=== PATIENT | female | born 1990 | race Caucasian/White ===

== ENCOUNTER 2016-02-28 05:55 | Inpatient (IN) | payer OTHER ==
[2016-02-28] VITALS (15 sets, daily range): BP systolic 92–157; BP diastolic 51–70
[~2016-02-28] VITALS: Ht 160 cm; Wt 71.0 kg
[2016-02-28] MEDS ORDERED: TYLE325T5 PO (07:13)
[2016-02-28] MEDS ORDERED: LACTATED RINGER'S 1000 ML IV STA (08:58)
[2016-02-28] MEDS ORDERED: PENICILLIN G POTASSIUM IV 5 MU in D5W MINI-BAG PLUS 100 ML IV STA (08:58)
[2016-02-28] MEDS ORDERED: PRENTAB9 PO (09:20)
[2016-02-28 10:18] LABS: MEAN CORPUSCULAR HEMOGLOBIN 32.9 pg (27.0-33.0); MEAN CORPUSCULAR VOLUME 96.8 fl (80.0-96.0); RED CELL DISTRIBUTION WIDTH 12.8 % (11.5-14.5); WHITE BLOOD COUNT 22.1 K/mm3 (4.0-10.0)
[2016-02-28] MEDS ORDERED: ceFAZolin 2 GM/D5W 50 ML IV BAG (J0690) As Ordered ONE (10:20)
[2016-02-28] MEDS ORDERED: PROMETHAZINE INJ 25 MG/ML VIAL (J2550) As Ordered ONE (11:57)
[2016-02-28] MEDS ORDERED: BUTORPHANOL 2 MG/ML INJ (J0595) As Ordered ONE (11:57)
[2016-02-28] MEDS ORDERED: PROMETHAZINE INJ 25 MG/ML VIAL (J2550) IV PRN (12:00)
[2016-02-28] MEDS ORDERED: BUTORPHANOL 2 MG/ML INJ (J0595) IV PRN (12:00)
[2016-02-28] MEDS ORDERED: PENICILLIN G POTASSIUM IV 2.5 MU in D5W 100 ML IV SCH (13:00)
[2016-02-28] MEDS ORDERED: ceFAZolin SOD 1 GM in D5W MINI-BAG PLUS 50 ML IV SCH (18:00)
[2016-02-28 18:50] LABS: CORD GAS HCO3 V 21.8 MEQ/L; CORD GAS O2 SAT V 79.4 %; CORD GAS PCO2 V 42.5 mmHg; CORD GAS PH V 7.328 UNITS; CORD GAS PO2 V 36.9 mmHg; CORD GAS SBC V 20.7 MEQ/L; CORD GAS TCO2 V 23.1 MEQ/L
[2016-02-28 18:54] LABS: CORD GAS HCO3 A 19.9 MEQ/L; CORD GAS O2 SAT A 82.9 %; CORD GAS PCO2 A 40.9 mmHg; CORD GAS PH A 7.305 UNITS; CORD GAS PO2 A 40.5 mmHg; CORD GAS SBC A 19.3 MEQ/L; CORD GAS TCO2 A 21.2 MEQ/L
[2016-02-28] MEDS ORDERED: MEASLES,MUMPS,RUBELLA VACCINE INJ (MMR-II) (90707) SC SCH (19:00)
[2016-02-28] MEDS ORDERED: ACETAMINOPHEN 500 MG TAB PO PRN (19:00)
[2016-02-28] MEDS ORDERED: OXYTOCIN INJ 10 UNITS/ML VIAL (J2590) IM ONE (19:00)
[2016-02-28] MEDS ORDERED: ANUSOL HC CREAM 30GM TOP PRN (19:00)
[2016-02-28] MEDS ORDERED: DOCUSATE SODIUM 100 MG CAP PO PRN (19:00)
[2016-02-28] MEDS ORDERED: IBUPROFEN 800 MG TAB PO PRN (19:00)
[2016-02-28] MEDS ORDERED: DIBUCAINE 1% OINTMENT 30GM TOP PRN (19:00)
[2016-02-28] MEDS ORDERED: MOM 30ML SUSPENSION UDC PO PRN (19:00)
[2016-02-28] MEDS ORDERED: RHOGAM 300 MCG (1500 IU) INJ (J2790) IM SCH (19:00)
[2016-02-28] MEDS ORDERED: METHYLERGONOVINE MALEATE 0.2 MG TAB PO PRN (19:00)
[2016-02-28] MEDS ORDERED: LIDOCAINE 1% MDV INJ 50 ML VIAL INFIL ONE (19:00)
[2016-02-28] MEDS ORDERED: miSOPROStol 200 MCG TAB (S0191) PR ONE (19:00)
[2016-02-29 06:19] VITALS: BP 106/59
[2016-02-29] MEDS: PRENATAL VITAMIN TAB PO SCH (08:40)
[2016-02-29 18:00] VITALS: BP 107/53
--- NOTE | 2016-03-01 05:33 | HPE ---
DATE OF ADMISSION: 25-year-old 2, para 0-0-1-0, estimated date of delivery 02/27/2016, here at 40 weeks 1 day with reports of uterine contractions during the night and light bloody show. Denies loss of fluid. Fetus is active. Last normal menstrual period 05/23/2015 for estimated date of delivery (ELADIO) 02/27/2016. Sonogram at seven weeks confirmed date. Anatomy scan within normal limits with the exception of renal hydronephrosis. OBSTETRICAL HISTORY: 2015 early miscarriage. ALLERGIES: No known drug allergies. MEDICAL-SURGICAL HISTORY: Noncontributory. FAMILY HISTORY: Family history of hypertension. SOCIAL HISTORY: . Father of the baby present and supportive. Denies tobacco, alcohol or drugs. OBJECTIVE: Prepregnancy weight 142, total weight gain 23 pounds. A+, antibody negative, rubella immune, VDRL, hepatitis B, hepatitis C, HIV, gonorrhea, Chlamydia all negative. 1-hour glucose 138. 3-hour within normal limits. VITAL SIGNS: 69/171/53/113. Group B strep is positive. Vital signs are stable. GENERAL: She is mildly uncomfortable. HEART: Heart rate is regular. RESPIRATIONS: Are easy. ABDOMEN: Abdomen is soft, gravid, longitudinal lie. Contractions 3-5 minutes apart and moderate. heart 145, moderate variability with accelerations. VAGINAL EXAM: 4-5 cm, 90% effaced, zero station, cephalic. Light bloody show. ASSESSMENT: Primipara at term, early labor, category one tracing. PLAN: Plan is admit. Patient is considering epidural. Anticipate normal spontaneous vaginal .
[2016-03-01 05:42] VITALS: BP 100/60
[2016-03-01] MEDS ORDERED: ACET50TA PO (08:19)
[2016-03-01] MEDS ORDERED: IBUP-1114 PO (08:20)
--- NOTE | 2016-03-01 09:02 | DN ---
DATE: 02/28/2016 Start of labor 0530 hours. Utilized Stadol and Phenergan for coping. Spontaneous rupture of membranes, clear fluid, 1656 hours. Fully dilated 1813 hours. Viable male delivered occiput transverse (ROT) position, restituted to the direct occiput posterior (OP) at 1827 hours, through loose nuchal cord. Spontaneous respirations. Transitioned on maternal abdomen. Cord doubly clamped and cut once pulsation ceased. score 9 and 9. Cord gases obtained. Placenta [place] and intact with three-vessel cord at 1836 hours. Fundus slow to firm with brisk bleeding. Pitocin 10 units intramuscular (IM) given, followed by misoprostol 1000 mcg per rectum (AK) with good effect. Perineum inspected. Second-degree laceration infiltrated with lidocaine and repaired with #3-0 Vicryl Rapide. Estimated blood loss 600 mL. Sponge, Sharp and instrument count correct. weight 8 pounds 12 ounces (3974 grams). Infant name is Alek. Mom and babe doing well.
[2016-03-01] MEDS: PRENATAL VITAMIN TAB PO SCH (09:13)
== END 2016-03-01 14:45 | disposition home or self-care (01) | DRG 775 ==
LOC: M LDO 05:55 → M LDI 08:57 → M OBS 20:44
PROVIDERS: ADMIT Advanced Practice Midwife; ATTEND Advanced Practice Midwife
PROC: 10E0XZZ Delivery of Products of Conception, External Approach (ICD-10-PCS; principal; 2016-02-28)
PROC: 0KQM0ZZ Repair Perineum Muscle, Open Approach (ICD-10-PCS; 2016-02-28)
DX: O48.0 Post-term pregnancy (principal); Z37.0 Single live birth; Z3A.40 40 weeks gestation of pregnancy; O99.820 Streptococcus B carrier state complicating pregnancy; O69.82X0 Labor and delivery complicated by other cord entanglement, without compression, not applicable or unspecified; O70.1 Second degree perineal laceration during delivery

== ENCOUNTER → 2016-09-06 | Outpatient (REF) | payer OTHER ==
[~2016-09-06] MED LIST: ACET50TA PO; IBUP-1114 PO; PRENTAB9 PO; TYLE325T5 PO
== END ==
LOC: M LAB REF 09:12
PROVIDERS: ATTEND Advanced Practice Midwife
DX: Z12.4 Encounter for screening for malignant neoplasm of cervix (principal)